=== PATIENT | female | born 1930 | race Caucasian/White ===

== ENCOUNTER 2016-10-20 09:09 | Emergency (ER) | payer MEDICARE ==
[2016-10-20] MEDS ORDERED: LIDOCAINE 5% PATCH TD ONE (10:00)
--- NOTE | 2016-10-20 10:45 | RAD ---
CHEST - 2 VIEWS COMPARISON: Chest one view, 09/18/2016 HISTORY: Bruising on right breast after a fall. FINDINGS: Views: Frontal and lateral chest Lungs: No acute finding. Transverse linear scar in the lateral left lung base. Heart and vessels: Normal heart size. Atherosclerosis of the order. Trachea and bronchi: Normal Mediastinum and karina: Normal Costophrenic sulci: Normal Chest wall and bones: Thoracic hyperkyphosis and moderate spondylosis. No acute finding. Degenerative changes of both shoulders. Upper abdomen: Normal. IMPRESSION: No acute finding. Chronic scar in the lateral left lung base. Atherosclerosis of the thoracic aorta. Thoracic hyperkyphosis and spondylosis.
== END 2016-10-20 10:43 | disposition home or self-care (01) ==
LOC: SUPCPDRO 09:09 → ED 09:09
DX: S20.211A Contusion of right front wall of thorax, initial encounter (principal); W01.198A Fall on same level from slipping, tripping and stumbling with subsequent striking against other object, initial encounter; Y93.01 Activity, walking, marching and hiking; Y92.480 Sidewalk as the place of occurrence of the external cause
CPT/HCPCS: 71020; 99283 ×2; A9270